=== PATIENT | male | born 1995 | race Caucasian/White ===

== ENCOUNTER 2020-09-06 21:00 | Emergency (ER) | payer OTHER, SELFPAY ==
[2020-09-06 21:02] VITALS: BP 140/122; PULSE 129; RESP 18; TEMP 37.2; O2SAT 92; BMI 24.4
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
[2020-09-06] MEDS: tetanus-dipt-pertussis 0.5 mL SDV IM (21:36)
[2020-09-06] MEDS: HYDROcodone-acetaminophen 7.5-325 mg Tablet 1 TAB PO (21:41)
[2020-09-06] MEDS: silver sulfadiazine cream 1% 50 gm 1 APPLIC TOPICAL (21:42)
[2020-09-06] MEDS: morphine 4 mg/mL SDV 1 mL IM (22:28)
[2020-09-06 22:37] VITALS: BP 148/97; PULSE 81; RESP 17; O2SAT 99
== END 2020-09-06 22:40 | disposition home or self-care (01) ==
PROVIDERS: Emergency Provider Emergency Medicine
DX: T23.001A Burn of unspecified degree of right hand, unspecified site, initial encounter (principal); X16.XXXA Contact with hot heating appliances, radiators and pipes, initial encounter; Z23 Encounter for immunization
CPT/HCPCS: 90471; 90715; 96372; 99283; J2270